=== PATIENT | female | born 1965 | race Caucasian/White ===

== ENCOUNTER 2018-06-12 13:26 | Emergency (ER) | payer OTHER ==
[2018-06-12 13:47] LABS: CHLORIDE,CL 103 mmol/L (98-107); SODIUM,NA 138 mmol/L (136-145)
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
== END 2018-06-12 14:05 | disposition home or self-care (01) ==
LOC: LL.ED 13:26
DX: M79.604 Pain in right leg (principal); M25.571 Pain in right ankle and joints of right foot; V89.2XXA Person injured in unspecified motor-vehicle accident, traffic, initial encounter
CPT/HCPCS: 36000; 36415; 73562-RT; 73630-RT; 80048; 85025; 99284